=== PATIENT | female | born 1995 | race Caucasian/White ===

== ENCOUNTER → 2018-01-26 | Outpatient (CLI) | payer OTHER ==
--- NOTE | 2018-01-26 10:40 | KCIC ---
MRI of the brain without contrast 01/26/2018 Clinical History: Migraine headaches with increased frequency and intensity. Technique: Unenhanced T1-weighted sagittal and axial, T2-weighted axial and coronal and FLAIR, gradient echo and diffusion-weighted axial images of the brain were obtained. Findings: The ventricles and sulci are within normal limits in size and configuration. No area of significant abnormal signal intensity is seen involving brain parenchyma. No extra-axial fluid collection is seen. There is no MRI evidence of acute ischemia/infarction. The paranasal sinuses are essentially clear. Normal flow voids are seen within the major vascular structures surrounding the brain parenchyma. Impression: Negative study. Electronically signed by: Loki Shen MD (01/26/2018 10:37 AM) [id number]
== END | disposition home or self-care (01) ==
LOC: KCIC MRI 07:45
PROVIDERS: ATTEND Psychiatry & Neurology Neurology with Special Qualifications in Child Neurology
DX: G43.009 Migraine without aura, not intractable, without status migrainosus (principal)
CPT/HCPCS: 70551